=== PATIENT | male | born 1945 | race Caucasian/White ===

== ENCOUNTER 2018-11-22 14:41 | Emergency (ER) | payer OTHER ==
[2018-11-22 14:51] VITALS: BP 144/73
--- NOTE | 2018-11-22 15:10 | ER Document Report ---
ED Medical Screen (RME) - General Chief Complaint: Urinary Problem Stated Complaint: BLOOD IN URINE Time Seen by Provider: 11/22/18 15:09 Notes: 73 years old male with a history of prostate cancer, external radiation last September, presents today with the sudden onset of painless hematuria. - Related Data Allergies/Adverse Reactions: ciprofloxacin [From Cipro] Allergy (Verified 11/22/18 14:44) ibuprofen Allergy (Verified 11/22/18 14:44) morphine Allergy (Verified 11/22/18 14:43) Penicillins Allergy (Verified 11/22/18 14:43) Physical Exam - Vital signs Vitals: Temp Pulse Resp BP Pulse Ox 97.8 F 73 20 144/73 H 96 11/22/18 14:49 11/22/18 14:49 11/22/18 14:49 11/22/18 14:49 11/22/18 14:49 Course - Vital Signs Vital signs: Temp Pulse Resp BP Pulse Ox 97.8 F 73 20 144/73 H 96 11/22/18 14:49 11/22/18 14:49 11/22/18 14:49 11/22/18 14:49 11/22/18 14:49
[2018-11-22 15:34] LABS: ABSOLUTE EOSINOPHILS # (AUTO) 0.2 10^3/uL (0.0-0.6); ABSOLUTE LYMPHOCYTES (AUTO) 0.7 10^3/uL (0.5-4.7); ABSOLUTE MONOCYTES (AUTO) 0.7 10^3/uL (0.1-1.4); ABSOLUTE NEUT (AUTO) 4.1 10^3/uL (1.7-8.2); BASOPHILS % (AUTO) 0.6 % (0-2); EOSINOPHILS % (AUTO) 3.5 % (0-6); HEMATOCRIT 42.9 % (37.9-51.0); HEMOGLOBIN 14.8 g/dL (13.5-17.0); LYMPHOCYTES % (AUTO) 11.9 % (13-45); MEAN CORPUSCULAR HEMOGLOBIN 33.6 pg (27.0-33.4); MEAN CORPUSCULAR HGB CONC 34.5 g/dL (32.0-36.0); MEAN CORPUSCULAR VOLUME 97 fl (80-97); PLATELET COUNT 190 10^3/uL (150-450); RED BLOOD COUNT 4.41 10^6/uL (4.35-5.55); RED CELL DISTRIBUTION WIDTH 13.6 % (11.5-14.0); TOTAL CELLS COUNTED % (AUTO) 100 %; WHITE BLOOD COUNT 5.7 10^3/uL (4.0-10.5)
[2018-11-22 15:44] LABS: INTERNATIONAL RATION (INR) 1.09; PROTHROMBIN TIME 14.7 SEC (11.4-15.4)
[2018-11-22 15:51] LABS: ALANINE AMINOTRANSFERASE 23 U/L (21-72); ALBUMIN 4.8 g/dL (3.5-5.0); ALKALINE PHOSPHATASE 57 U/L (38-126); ANION GAP 11 (5-19); ASPARTATE AMINO TRANSFERASE 19 U/L (17-59); BILIRUBIN,DIRECT 0.3 mg/dL (0.0-0.4); BILIRUBIN,TOTAL 1.5 mg/dL (0.2-1.3); BLOOD UREA NITROGEN 20 mg/dL (7-20); CALCIUM 9.6 mg/dL (8.4-10.2); CARBON DIOXIDE 27 mmol/L (22-30); CHLORIDE 102 mmol/L (98-107); GLUCOSE 101 mg/dL (75-110); POTASSIUM 4.4 mmol/L (3.6-5.0); SODIUM 140.4 mmol/L (137-145); TOTAL PROTEIN 7.2 g/dL (6.3-8.2)
--- NOTE | 2018-11-22 16:07 | ER Document Report ---
ED General - General Chief Complaint: Urinary Problem Stated Complaint: BLOOD IN URINE Time Seen by Provider: 11/22/18 15:09 Mode of Arrival: Ambulatory Information source: Patient Notes: Patient presents to the emergency department with complaints of noting blood in his urine. Patient reports approximately 2 hours ago he went to the bathroom and noted blood in his urine. He reports history of prostate cancer years ago. He was treated with radiation therapy. Patient also has a history of A. fib and is on Pradaxa for that. Patient denies trauma. Denies urinary symptoms such frequency urgency. He denies trauma. Denies fever vomiting diarrhea. Denies back pain or flank pain. Patient reports the only symptom he is having is blood in his urine. Patient just moved here approximately 1 month ago from [place] to live with his son. Reports he has established himself with a roustabout supervisor, Dr. Elder. He is also established himself with Dr. Zan Roland. - HPI Onset: Just prior to arrival Onset/Duration: Sudden Quality of pain: No pain Severity: None Associated symptoms: None Exacerbated by: Denies Relieved by: Denies Similar symptoms previously: No Recently seen / treated by doctor: No - Related Data Allergies/Adverse Reactions: ciprofloxacin [From Cipro] Allergy (Verified 11/22/18 14:44) ibuprofen Allergy (Verified 11/22/18 14:44) morphine Allergy (Verified 11/22/18 14:43) Penicillins Allergy (Verified 11/22/18 14:43) Past Medical History - General Information source: Patient - Social History Smoking Status: Former Smoker Cigarette use (# per day): No Chew tobacco use (# tins/day): No Frequency of alcohol use: Heavy Drug Abuse: None Lives with: Family - Lives with son Family History: Reviewed & Not Pertinent Patient has suicidal ideation: No Patient has homicidal ideation: No - Past Medical History Cardiac Medical History: Reports: Hx Atrial Fibrillation, Hx Hypertension Neurological Medical History: Reports: Hx Cerebrovascular Accident - 2010 no residual Renal/ Medical History: Denies: Hx Peritoneal Dialysis Malignancy Medical History: Reports Hx Prostate Cancer, Reports Hx Skin Cancer Past Surgical History: Reports: Hx Orthopedic Surgery - rt ankle ,shoulder, leg Review of Systems - Review of Systems Notes: Review HPI for review of systems., All other systems negative Physical Exam - Vital signs Vitals: Temp Pulse Resp BP Pulse Ox 97.8 F 73 20 144/73 H 96 11/22/18 14:49 11/22/18 14:49 11/22/18 14:49 11/22/18 14:49 11/22/18 14:49 - Notes Notes: PHYSICAL EXAMINATION: GENERAL: Well-appearing and in no acute distress HEAD: Atraumatic, normocephalic. EYES: Pupils equal round, extraocular movements intact, sclera anicteric, conjunctiva are normal. ENT: nares patent, . Moist mucous membranes. NECK: Normal range of motion, supple LUNGS: CTAB and equal. No wheezes rales or rhonchi. HEART: Regular rate, + murmurs ABDOMEN: Soft, no tenderness. No guarding, no rebound EXTREMITIES: Normal range of motion, NEUROLOGICAL: Cranial nerves grossly intact. Normal sensory/motor exams. PSYCH: Normal mood, normal affect. SKIN: Warm, Dry, normal turgor, no rashes or lesions noted - Back Back: Normal, Nontender. No: CVA tenderness Course - Re-evaluation Re-evalutation: 11/22/18 16:05 patient and family instructed on labs, waiting on urine 11/22/18 17:21 ua with moderate blood and ketones. Other labs unremarkable. Consulted Dr. Cline. He agrees patient can be discharged home. Patient was instructed on results. He has an appointment with Dr. Zan Roland at the end of this month. He was encouraged to call Dr. Roland for a sooner appointment for follow-up from the emergency department. He was also instructed that he needs follow-up with urology. - Vital Signs Vital signs: Temp Pulse Resp BP Pulse Ox 97.8 F 73 20 144/73 H 96 11/22/18 14:49 11/22/18 14:49 11/22/18 14:49 11/22/18 14:49 11/22/18 14:49 - Laboratory Result Diagrams: 11/22/18 15:17 11/22/18 15:17 Laboratory results interpreted by me: 11/22/18 11/22/18 11/22/18 15:17 15:17 16:30 MCH 33.6 H Lymphocytes % 11.9 L Total Bilirubin 1.5 H Urine Ketones 20 H Urine Blood MODERATE H Urine Urobilinogen 4.0 H Urine Ascorbic Acid 40 H Discharge - Discharge Clinical Impression: Hematuria Condition: Stable Disposition: HOME, SELF-CARE Instructions: Hematuria (OM) Additional Instructions: *You have been evaluated for blood in your urine, hematuria *Follow up with dr roland within the next week *Follow up with a urologist for recheck and evaluation *Return to ED for worsening condition, changes, needs Forms: Elevated Blood Pressure Referrals: LYNETTE ROD [NO LOCAL MD] - Follow up in 1 week CARLO ROLAND MD [COMMUNITY BASED STAFF] - Follow up in 3-5 days (as scheduled)
[2018-11-22 17:01] LABS: APPEARANCE,URINE SLIGHTLY-CLOUDY; BILIRUBIN,URINE NEGATIVE (NEGATIVE); GLUCOSE, URINE NEGATIVE (NEGATIVE); KETONES,URINE 20 mg/dL (NEGATIVE); LEUKOCYTE ESTERASE,URINE NEGATIVE (NEGATIVE); NITRITE,URINE NEGATIVE (NEGATIVE); PROTEIN,URINE NEGATIVE (NEGATIVE); URINE SPECIFIC GRAVITY 1.023
[2018-11-22 17:02] LABS: COLOR,URINE YELLOW
== END 2018-11-22 17:58 | disposition home or self-care (01) ==
LOC: EDBD → ER 14:41
DX: R31.9 Hematuria, unspecified (principal); I48.91 Unspecified atrial fibrillation; I10 Essential (primary) hypertension; Z79.01 Long term (current) use of anticoagulants; Z88.3 Allergy status to other anti-infective agents; Z88.6 Allergy status to analgesic agent; Z88.0 Allergy status to penicillin; Z86.73 Personal history of transient ischemic attack (TIA), and cerebral infarction without residual deficits; Z85.46 Personal history of malignant neoplasm of prostate
CPT/HCPCS: 36415; 80053; 81001; 85025; 85610; 87086; 99283